=== PATIENT | female | born 1945 | race Caucasian/White ===

== ENCOUNTER → 2025-03-24 13:39 | Outpatient (REF) | payer OTHER, SELFPAY | LOC: HWRAD 13:39 | PROVIDERS: ATTENDING PHYSICIAN Nurse Practitioner Adult Health | DX: I10 Essential (primary) hypertension (principal); D17.71 Benign lipomatous neoplasm of kidney; N39.490 Overflow incontinence | CPT/HCPCS: 76770 ==

== ENCOUNTER → 2025-04-12 13:23 | Outpatient (REF) | payer OTHER, SELFPAY | LOC: HWRCS 13:23 | PROVIDERS: ATTENDING PHYSICIAN Nurse Practitioner Adult Health | DX: I10 Essential (primary) hypertension (principal); R01.1 Cardiac murmur, unspecified; R60.0 Localized edema | CPT/HCPCS: 93306 ==

== ENCOUNTER → 2025-10-10 12:35 | Outpatient (REF) | payer OTHER, SELFPAY | LOC: HWRAD 12:35 | PROVIDERS: ATTENDING PHYSICIAN Internal Medicine Rheumatology; FAMILY PHYSICIAN Nurse Practitioner Adult Health | DX: M81.0 Age-related osteoporosis without current pathological fracture (principal) | CPT/HCPCS: 77080 ==